=== PATIENT | female | born 1955 | race Two or more races ===

== ENCOUNTER 2019-11-07 11:41 | Emergency (ER) | payer MEDICAID, OTHER ==
[~2019-11-07] VITALS: Ht 152.4 cm; Wt 65.8 kg
[2019-11-07 11:51] VITALS: BP 150/81
[2019-11-07 13:13] LABS: Basophils # (auto) 0 10 ^3/uL (0-0.2); Basophils % (auto) 0.5 % (0.0-2.0); Eosinophils # (auto) 0.1 10 ^3/uL (0-0.8); Eosinophils % (auto) 1.1 % (0.0-7.0); Hematocrit 41.7 % (36.0-46.0); Lymphocytes # (auto) 1.4 10 ^3/uL (0.4-5.4); Lymphocytes % (auto) 23.8 % (10.0-50.0); Mean Corpuscular Hemoglobin 31.6 pg (28.0-32.0); Mean Corpuscular Hgb Conc. 33.7 g/dL (32.0-36.0); Mean Corpuscular Volume 93.8 fL (80.0-100.0); Monocytes # (auto) 0.5 10 ^3/uL (0-1.3); Monocytes % (auto) 8.6 % (0.0-12.0); Neutrophils # (auto) 3.8 10 ^3/uL (1.6-8.6); Platelet Count (auto) 287 10^3/uL (140-450); Red Blood Cells 4.44 10^6/uL (4.0-5.20); Red Cell Distribution Width 12.7 % (11.8-14.3); White Blood Cell 5.7 10^3/uL (4.4-10.8)
[2019-11-07 13:32] LABS: Anion Gap 4 (5-15); Blood Urea Nitrogen 17 mg/dL (7-18); Calcium 9.1 mg/dL (8.5-10.1); Carbon Dioxide 29 mmol/L (21-32); Chloride 106 mmol/L (98-107); Potassium 4.1 mmol/L (3.5-5.1); Sodium 139 mmol/L (136-145)
[2019-11-07 13:40] LABS: Alanine Aminotransferase 30 U/L (13-56); Albumin 3.9 g/dL (3.4-5.0); Alkaline Phosphatase 114 U/L (45-117); Aspartate Aminotransferase 17 U/L (15-37); Bilirubin, Total 0.3 mg/dL (0.2-1.0); GFR African American 124 mL/min; GFR Non-African American 102 mL/min; Glucose 87 mg/dL (74-106); Total Protein 8.1 g/dL (6.4-8.2)
== END 2019-11-07 14:19 | disposition home or self-care (01) ==
LOC: ER 11:41
DX: R07.89 Other chest pain (principal); E78.5 Hyperlipidemia, unspecified; I10 Essential (primary) hypertension; R51 Headache; Z98.51 Tubal ligation status
CPT/HCPCS: 36415; 71046; 80053; 84484; 85025; 93005

== ENCOUNTER 2022-02-25 12:22 | Emergency (ER) | payer MEDICAID ==
[~2022-02-25] VITALS: Ht 152.4 cm; Wt 70.5 kg
[2022-02-25 13:39] VITALS: BP 185/87
[2022-02-25 14:16] LABS: Basophils # (auto) 0 10 ^3/uL (0-0.2); Basophils % (auto) 0.4 % (0.0-2.0); Eosinophils # (auto) 0 10 ^3/uL (0-0.8); Eosinophils % (auto) 0.4 % (0.0-7.0); Hematocrit 42.8 % (36.0-46.0); Hemoglobin 14.4 g/dL (12.2-16.2); Lymphocytes # (auto) 0.9 10 ^3/uL (0.4-5.4); Lymphocytes % (auto) 13.9 % (10.0-50.0); Mean Corpuscular Hemoglobin 31.1 pg (28.0-32.0); Mean Corpuscular Hgb Conc. 33.6 g/dL (32.0-36.0); Mean Corpuscular Volume 92.6 fL (80.0-100.0); Monocytes # (auto) 0.2 10 ^3/uL (0-1.3); Monocytes % (auto) 3.6 % (0.0-12.0); Neutrophils # (auto) 5.2 10 ^3/uL (1.6-8.6); Neutrophils % (auto) 81.7 % (37.0-80.0); Nucleated Red Blood Cells % 0.1 %; Red Blood Cells 4.62 10^6/uL (4.0-5.20); Red Cell Distribution Width 12.8 % (11.8-14.3); White Blood Cell 6.3 10^3/uL (4.4-10.8)
[2022-02-25 14:38] LABS: Albumin 4.2 g/dL (3.4-5.0); Calcium 9.3 mg/dL (8.5-10.1); Potassium 4.4 mmol/L (3.5-5.1)
[2022-02-25 14:42] LABS: Bilirubin, Total 0.4 mg/dL (0.2-1.0); Total Protein 8.1 g/dL (6.4-8.2)
[2022-02-25] MEDS ORDERED: HYDR50CA PO (15:27)
[2022-02-25] MEDS ORDERED: ALPRAZolam 0.5 MG TAB PO ONE (15:30)
== END 2022-02-25 15:54 | disposition home or self-care (01) ==
LOC: ER 12:25
DX: F41.9 Anxiety disorder, unspecified (principal); F32.9 Major depressive disorder, single episode, unspecified; I10 Essential (primary) hypertension; E78.5 Hyperlipidemia, unspecified; Z79.899 Other long term (current) drug therapy
CPT/HCPCS: 36415; 80053; 84443; 84484; 85025; 93005

== ENCOUNTER 2023-05-13 13:04 | Emergency (ER) | payer OTHER, MEDICAID ==
[~2023-05-13 13:04] MED LIST: HYDR50CA PO
== END 2023-05-13 13:53 | disposition left against medical advice (07) ==
LOC: ER 13:04
DX: R42 Dizziness and giddiness (principal); R11.2 Nausea with vomiting, unspecified; Z53.21 Procedure and treatment not carried out due to patient leaving prior to being seen by health care provider

== ENCOUNTER 2024-07-29 01:35 | Observation (INO) | payer OTHER, MEDICAID ==
[2024-07-29] VITALS (9 sets, daily range): BP systolic 106–119; BP diastolic 46–51; PULSE 61–85; RESP 16–22; TEMP 98–98.5; O2SAT 96–100
[~2024-07-29] VITALS: Ht 152.4 cm; Wt 65.0 kg
[2024-07-29] MEDS: IOHEXOL 300 MG/ML 100ML BOTTLE IJ ONE (02:00)
[2024-07-29 02:26] LABS: Basophils # (auto) 0.1 10 ^3/uL (0-0.2); Basophils % (auto) 0.3 % (0.0-2.0); Eosinophils # (auto) 0 10 ^3/uL (0-0.8); Eosinophils % (auto) 0.2 % (0.0-7.0); Hemoglobin 14.8 g/dL (12.2-16.2); Lymphocytes # (auto) 0.7 10 ^3/uL (0.4-5.4); Mean Corpuscular Hemoglobin 32.3 pg (28.0-32.0); Mean Corpuscular Hgb Conc. 34.3 g/dL (32.0-36.0); Monocytes % (auto) 5.8 % (0.0-12.0); Neutrophils # (auto) 15.3 10 ^3/uL (1.6-8.6); Neutrophils % (auto) 89.7 % (37.0-80.0); Platelet Count (auto) 390 10^3/uL (140-450); Red Blood Cells 4.57 10^6/uL (4.0-5.20); Red Cell Distribution Width 12.7 % (11.8-14.3)
[2024-07-29] MEDS: FAMOTIDINE (10MG/ML) 2ML VL IV ONE (02:31)
[2024-07-29] MEDS: MORPHINE SULFATE 4 MG/ML SYR/VIAL IV ONE (02:32)
[2024-07-29] MEDS: ONDANSETRON HCL 4 MG/2 ML VIAL IV ONE (02:32)
--- NOTE | 2024-07-29 02:39 | ED.PDOC ---
History of Present Illness HPI Comments 68 y/o F presents with c/o nonradiating, epigastric abdominal pain, nausea, vomiting, and diarrhea for the past 2x days, today. Patient endorses on progressively worsening symptoms following initial unprovoked and gradual onset. She reports no recent injuries, spoiled food intake, or sick contact along with any additional relevant or pertinent information at time of initial assessment. Patient denies any hematemesis, hematochezia, diarrhea, urinary symptoms, fever, chills, or other associated symptoms or modifiers at this time. Chief Complaint: Abdominal Pain Time Seen by MD: 01:50 Primary Care Provider: MUKESH Reviewed Notes: Nurses Notes, Medications, Allergies Allergies: Coded Allergies: NO KNOWN ALLERGIES (Unverified , 11/07/19) Home Meds Active Scripts Hydroxyzine Pamoate (Vistaril) 50 Mg Cap, 50 MG PO QHSP PRN, #20 CAP Prov:MARGIE DELAROSA 02/25/22 Information Source: Patient Mode of Arrival: Ambulatory Severity: Moderate Timing: Days Duration: Since onset Prehospital treatment: None Past Medical History PAST MEDICAL HISTORY: Anxiety, Depression, High Lipids, HTN Surgical History: BTL PHARMACY DIRECTOR History: No Pertinent PHARMACY DIRECTOR History Family History Family History: No family hx of Cancer, No family hx of DM, No family hx of Heart loretta Social History Smoker: Non-Smoker Alcohol: Denies ETOH Use Drugs: Denies Drug Use Lives In: Home All Other Systems: Reviewed and Negative (Comprehensive systems review obtained and negative except for what is stated in the HPI.) Physical Exam General Appearance: No Apparent Distress, Normal HEENT: Normal ENT Inspection, Pharynx Normal, TMs Normal Neck: Full Range of Motion, Non-Tender, Normal, Normal Inspection Respiratory: Chest Non-Tender, Lungs Clear, No Accessory Muscle Use, No Respiratory Distress, Normal Breath Sounds Cardiovascular: No Edema, No JVD, No Murmur, No Gallop, Normal Peripheral Pulses, Regular Rate/Rhythm Breast Exam: Deferred Gastrointestinal: No Organomegaly, Non Tender, No Pulsatile Mass, Normal Bowel Sounds, Soft Genitalia: Deferred Pelvic: Deferred Rectal: Deferred Extremities: No calf tenderness, Normal capillary refill, Normal inspection, Normal range of motion, Non-tender, No pedal edema Musculoskeletal : Apperance: Normal Neurologic: Alert, ibm bpm developer II-XII nml as Tested, No Motor Deficits, Normal Affect, Normal Mood, No Sensory Deficits Cerebellar Function: Normal Reflexes: Normal Skin: Dry, Normal Color, Warm Lymphatic: No Adenopathy Was a procedure done? Was a procedure done?: No Differential Dx Considerations may include: gastritis, gastroenteritis, GERD, PUD, cholelithiasis, cholecystitis X-Ray, Labs, Meds, VS Vital Signs Date Time Temp Pulse Resp B/P (MAP) Pulse Ox O2 Delivery O2 Flow Rate FiO2 07/29/24 03:02 83 20 156/76 07/29/24 03:01 85 22 96 Room Air* 0 21 07/29/24 02:57 98.6 88 20 152/71 (98) 99 98.6 07/29/24 02:32 86 18 131/73 07/29/24 01:57 97.4 86 18 131/73 (92) 99 97.4 Lab Test 07/29/24 02:12 Range/Units White Blood Count 17.0 H 4.4-10.8 10^3/uL Red Blood Count 4.57 4.0-5.20 10^6/uL Hemoglobin 14.8 12.2-16.2 g/dL Hematocrit 43.0 36.0-46.0 % Mean Corpuscular Volume 94.0 80.0-100.0 fL Mean Corpuscular Hemoglobin 32.3 H 28.0-32.0 pg Mean Corpuscular Hemoglobin Concent 34.3 32.0-36.0 g/dL Red Cell Distribution Width 12.7 11.8-14.3 % Platelet Count 390 140-450 10^3/uL Mean Platelet Volume 8.6 6.9-10.8 fL Neutrophils (%) (Auto) 89.7 H 37.0-80.0 % Lymphocytes (%) (Auto) 4.0 L 10.0-50.0 % Monocytes (%) (Auto) 5.8 0.0-12.0 % Eosinophils (%) (Auto) 0.2 0.0-7.0 % Basophils (%) (Auto) 0.3 0.0-2.0 % Neutrophils # (Auto) 15.3 H 1.6-8.6 10 ^3/uL Lymphocytes # (Auto) 0.7 0.4-5.4 10 ^3/uL Monocytes # (Auto) 1.0 0-1.3 10 ^3/uL Eosinophils # (Auto) 0 0-0.8 10 ^3/uL Basophils # (Auto) 0.1 0-0.2 10 ^3/uL Nucleated Red Blood Cells 0.0 % Sodium Level 144 136-145 mmol/L Potassium Level 3.4 L 3.5-5.1 mmol/L Chloride Level 105 98-107 mmol/L Carbon Dioxide Level 30 20-31 mmol/L Anion Gap 9 5-15 Blood Urea Nitrogen 24 H 9-23 mg/dL Creatinine 0.92 0.550-1.02 mg/dL Glomerular Filtration Rate Calc 69 >90 mL/min BUN/Creatinine Ratio 26.1 H 10.0-20.0 Serum Glucose 191 H 74-106 mg/dL Calcium Level 10.9 H 8.7-10.4 mg/dL Total Bilirubin 0.4 0.2-1.0 mg/dL Aspartate Amino Transferase (AST) 15 13-40 U/L Alanine Aminotransferase (ALT) 22 7-40 U/L Alkaline Phosphatase 85 46-116 U/L Total Protein 8.2 5.7-8.2 g/dL Albumin 5.2 H 3.2-4.8 g/dL Lipase 89 H 12-53 U/L Current Medications Medications (Trade) Dose Ordered Sig/Flower Route Start Time Stop Time Status Last Admin Sodium Chloride 1,000 ml @ 1,000 mls/hr Q1H ONCE IV 07/29/24 02:00 07/29/24 02:59 DC 07/29/24 02:52 Ondansetron HCl (Zofran) 4 mg ONCE ONCE IV 07/29/24 02:00 07/29/24 02:01 DC 07/29/24 02:32 Morphine Sulfate 4 mg ONCE ONCE IV 07/29/24 02:00 07/29/24 02:01 DC 07/29/24 02:32 Famotidine (Pepcid Injection) 20 mg ONCE ONCE IV 07/29/24 02:00 07/29/24 02:01 DC 07/29/24 02:31 Time of 1ST Reevaluation: 02:20 Reevaluation 1ST: Unchanged Patient Education/Counseling: Diagnosis, Treatment Family Education/Counseling: No Family Present Additional Information Previous visit documents reviewed: May 13, 2023 encounter for dizziness, nausea, and vomiting The following tests were ordered, and results were reviewed by me: CT abdomen/pelvis w/IV contrast, UA, lipase, CMP, CBC Additional Information was gathered from interviewing the following independent historians: n/a I reviewed and agreed with the following test results read by other providers: CT abdomen/pelvis w/IV contrast I discussed treatment and results with medical personnel and: Patient Departure 1 Departure Time of Disposition: 03:48 (Patient presented with abdominal pain that was concerning for possible appendicits, gastritis, cholecystitis, colitis, gastroenteritis, sbo, or orther possible surgical emergency. Data: 1. I ordered and reviewed the result of at least 3 labs including a CBC, BMP, and Urinalysis. 2. I independently interpreted the following tests: CT Abdoment and Pelvis is concerning for possible cholecystitis .Risk:This patient has a high risk of mo rbidity due to further diagnostic testing or treatment and may suffer from an acute abdominal process disorder. Workup reveals concern for cholecystitis and patient should be admitted for further workup. and possible expert consultation. ) Impression: Primary Impression: Abdominal pain Qualified Codes: R10.13 - Epigastric pain Additional Impressions: Nausea and vomiting Qualified Codes: R11.12 - Projectile vomiting Cholelithiasis Qualified Codes: K80.20 - Calculus of gallbladder without cholecystitis without obstruction Disposition: ADMITTED INPATIENT Admit to: Med Surg Condition: Serious Critical Care Note Critical Care Time?: Yes Critical care comment: Intractable abdominal pain Authorized and Performed by: Mukul Bosch MD Total critical care time: Approximately 38 minutes Due to a high probability of clinically significant, life threatening deterioration, the patient required my highest level of preparedness to intervene emergently and I personally spent this critical care time directly and personally managing the patient. This critical care time included obtaining a history; examining the patient; pulse oximetry; ordering and review of studies; arranging urgent treatment with development of a management plan; evaluation of patient's response to treatment; frequent reassessment; and, discussions with other providers. This critical care time was performed to assess and manage the high probability of imminent, life-threatening deterioration that could result in multi-organ failure. It was exclusive of separately billable procedures and treating other patients and teaching time. Please see my other sections and the rest of the note for further information on patient assessment and treatment. Stability Stability form required: No Heart Score Heart Score: Heart Score Response (Comments) Value History N/A 0 EKG N/A 0 Age N/A 0 Risk Factors N/A 0 Troponin N/A 0 Total 0 I personally scribed for MUKUL BOSCH MD ([email or web address]) on 07/29/24 at 02:39. Electronically submitted by Percy Montelongo ([email or web address]). MUKUL BOSCH MD Jul 29, 2024 02:39
[2024-07-29 02:42] LABS: Alanine Aminotransferase 22 U/L (7-40); Alkaline Phosphatase 85 U/L (46-116); Anion Gap 9 (5-15); Aspartate Aminotransferase 15 U/L (13-40); BUN/Creatinine Ratio 26.1 (10.0-20.0); Bilirubin, Total 0.4 mg/dL (0.2-1.0); Carbon Dioxide 30 mmol/L (20-31); Chloride 105 mmol/L (98-107); Sodium 144 mmol/L (136-145)
[2024-07-29] MEDS: SODIUM CHLORIDE 0.9% 1,000 ML IV ONE (02:52)
[2024-07-29 03:08] LABS: Albumin 5.2 g/dL (3.2-4.8); Blood Urea Nitrogen 24 mg/dL (9-23); Calcium 10.9 mg/dL (8.7-10.4); Glucose 191 mg/dL (74-106); Lipase 89 U/L (12-53); Potassium 3.4 mmol/L (3.5-5.1); Total Protein 8.2 g/dL (5.7-8.2)
--- NOTE | 2024-07-29 03:09 | DVH ---
Exam: CT CT AB PEL WITH IV CON ONLY History: ABDOMINAL PAIN Comparison Study: None available at time of dictation. Contrast: 100 cc Omnipaque 300 TECHNIQUE: A digital tunnel kiln repairer image was obtained. During the uneventful, intravenous administration of c ontrast material, multislice data acquisition was obtained through the abdomen and pelvis. The data s et was subsequently reconstructed into axial images. Images were reviewed on a work station using a c ombination of axial and multiplanar using a variety of window levels and settings. All CT scans at this medical facility are performed using dose modulation techniques as appropriate t o a performed exam including the following: Automated exposure control was utilized; adjustment of th e MA and/or KV according to patient size; and use of iterative reconstruction technique. Radiation Dose Information: CT Dose: CTDI volume is 11.58 mGy. Dose-length product is 565.78 mGy*cm FINDINGS: Imaged portions of the lung bases demonstrate bibasilar dependent changes. There is a small hiatal he rnia. Mild diffuse hepatic steatosis. The gallbladder appears prominent with possible focal wall thic kening at the fundus. The common bile duct is prominent measuring 1.0 cm. Diverticula of the 2nd port ion of the duodenum are noted. The pancreas appears unremarkable. Adrenal glands appear unremarkable. Kidneys enhance symmetrically with multiple right renal cysts measuring up to 2.7 cm. No evidence of bowel obstruction or focal bowel wall thickening. The appendix appears normal. Severe sigmoid colonic diverticulosis. No free fluid, free air, or adenopathy. No suspicious osseous lesion . IMPRESSION: 1. Mild hepatic steatosis 2. Small hiatal hernia 3. Focal wall thickening of the gallbladder fundus May relate to adenomyomatosis. Prominent common bi le duct of unknown etiology, in the presence of duodenal diverticula which can account for findings. Consider right upper quadrant ultrasound and correlation with LFT/bili 4. Sigmoid colon diverticulosis without CT findings to suggest diverticulitis. HS:Y
[2024-07-29] MEDS ORDERED: ONDANSETRON HCL 4 MG/2 ML VIAL IV PRN (04:15)
[2024-07-29] MEDS: PIPERACILLIN-TAZO 4.5GM 100 ML IV ONE (04:24)
--- NOTE | 2024-07-29 04:55 | DVHHPRES ---
History of Present Illness Resident Creating Document: TAMEKA LEROY Reason for Visit: mid abdominal pain History of Present Illness A 68 year-old female with past medical history of anxiety, depression, hyperlipidemia and HTN presents to the ED with the chief complaints of mid abdominal pain, nausea, vomiting, and diarrhea for the past two days. According to the patient, she has been in her normal state of health until the past couple of days when she started experiencing mid-abdominal pain that became progressively worse and associate with nausea and nonbilious, nonblood emesis and nonbloody diarrhea. Pain was neither aggravated by food nor relieved by antacids. It was nonradiating and rated 8/10. She reports no recent travels outside the [place], intake of spoiled food or sick contact. She denies urinary symptoms, fever, chills, or other associated symptoms or modifiers at this time. Patient is very weak looking but hemodynamically stable. Pmhx: Anxiety, Depression, Hyperlipidemia, HTN, murmur repaired 50 years ago PShx: bilateral tubal ligation, Fmily history: Noncontributory Social history: lives at home and takes care of her Past Medical History See HPI Past Surgical History See HPI Review of Systems Constitutional: Yes: Weakness; No: Fever, Chills, Sweats, Malaise, Other Eyes: No: Pain, Vision change, Conjunctivae inflammation, Eyelid inflammation, Other, Redness ENT: No: Ear pain, Ear discharge, Nose pain, Nose discharge, Nose congestion, Mouth pain, Mouth swelling, Throat pain, Throat swelling, Other Respiratory: Cough, Hemoptysis, Pleuritic Pain, Sputum; No: Dry, Shortness of breath, SOB with excertion, Wheezing, Wheezing, Other Cardiovascular: No: Chest Pain, Palpitations, Orthopnea, Paroxysmal Noc. Dyspnea, Edema, Lt Headedness, Other Gastrointestinal: Nausea, Vomiting, Abdominal Pain, Diarrhea; No: Constipation, Melena, Hematochezia, Other Genitourinary: No Dysuria, No Frequency, No Incontinence, No Hematuria, No Retention, No Other Musculoskeletal: No: other, neck pain, shoulder pain, arm pain, back pain, hand pain, leg pain, foot pain Skin: No: Rash, Lesions, Jaundice, Bruising, Other Neurological: No: Weakness, Numbness, Incoordination, Change in speech, Confusion, Seizures, Other Allergies: Coded Allergies: NO KNOWN ALLERGIES (Unverified , 11/07/19) Medications Current Medications Medications Dose Ordered Sig/Flower Route Start Time Stop Time Status Last Admin Dose Admin Ondansetron HCl 4 mg Q4HP PRN IV 07/29/24 04:15 UNV Enoxaparin Sodium 40 mg DAILY SC 07/29/24 10:00 UNV Sodium Chloride 1,000 ml @ 60 mls/hr [id number] IV 07/29/24 04:15 UNV Exam Vital Signs Vital Signs Date Time Temp Pulse Resp B/P (MAP) Pulse Ox O2 Delivery O2 Flow Rate FiO2 07/29/24 03:02 83 20 156/76 07/29/24 03:01 96 Room Air* 0 21 07/29/24 02:57 98.6 98.6 Exam General: alert and oriented x4, mild distress and weak looking HEENT: Atraumatic,no conjunctivitis or nasal discharge Lung: CTAB Chest: S1 and s2 presents, No murmur Abdominal:tenderness in the mid abdomen : Nontender, non distended Skin: no abnormalities noted Extremities: no cyanosis, edema Neurology: No weakness noted. Motor and sensory intact. Labs/Xrays Labs Test 07/29/24 03:50 07/29/24 02:12 Range/Units Lactic Acid Level 1.5 0.4-2.0 mmol/L White Blood Count 17.0 H 4.4-10.8 10^3/uL Red Blood Count 4.57 4.0-5.20 10^6/uL Hemoglobin 14.8 12.2-16.2 g/dL Hematocrit 43.0 36.0-46.0 % Mean Corpuscular Volume 94.0 80.0-100.0 fL Mean Corpuscular Hemoglobin 32.3 H 28.0-32.0 pg Mean Corpuscular Hemoglobin Concent 34.3 32.0-36.0 g/dL Red Cell Distribution Width 12.7 11.8-14.3 % Platelet Count 390 140-450 10^3/uL Mean Platelet Volume 8.6 6.9-10.8 fL Neutrophils (%) (Auto) 89.7 H 37.0-80.0 % Lymphocytes (%) (Auto) 4.0 L 10.0-50.0 % Monocytes (%) (Auto) 5.8 0.0-12.0 % Eosinophils (%) (Auto) 0.2 0.0-7.0 % Basophils (%) (Auto) 0.3 0.0-2.0 % Neutrophils # (Auto) 15.3 H 1.6-8.6 10 ^3/uL Lymphocytes # (Auto) 0.7 0.4-5.4 10 ^3/uL Monocytes # (Auto) 1.0 0-1.3 10 ^3/uL Eosinophils # (Auto) 0 0-0.8 10 ^3/uL Basophils # (Auto) 0.1 0-0.2 10 ^3/uL Nucleated Red Blood Cells 0.0 % Sodium Level 144 136-145 mmol/L Potassium Level 3.4 L 3.5-5.1 mmol/L Chloride Level 105 98-107 mmol/L Carbon Dioxide Level 30 20-31 mmol/L Anion Gap 9 5-15 Blood Urea Nitrogen 24 H 9-23 mg/dL Creatinine 0.92 0.550-1.02 mg/dL Glomerular Filtration Rate Calc 69 >90 mL/min BUN/Creatinine Ratio 26.1 H 10.0-20.0 Serum Glucose 191 H 74-106 mg/dL Calcium Level 10.9 H 8.7-10.4 mg/dL Total Bilirubin 0.4 0.2-1.0 mg/dL Aspartate Amino Transferase (AST) 15 13-40 U/L Alanine Aminotransferase (ALT) 22 7-40 U/L Alkaline Phosphatase 85 46-116 U/L Total Protein 8.2 5.7-8.2 g/dL Albumin 5.2 H 3.2-4.8 g/dL Lipase 89 H 12-53 U/L Assessment/Plan Assessment/Plan Assessment Sepsis likely due to the Gastritis Gastritis, Viral vs Bacterial hypokalemia mild hypercalcemia likely due to dehydration Hypertension Hyperlipidemia Mildly elevated lipase History of Anxiety, depression and insomnia Severe Glaucoma History of vertigo Mild hepatic steatosis Small hiatal hernia Sigmoid colon diverticulosis without CT findings to suggest diverticulitis. Focal wall thickening of the gallbladder fundus May relate to adenomyomatosis History of murmur with " hole in heart" repaired at age Plan Keep NPO, give zofran and PPI IV NS at 125 ml/hr IV Antibiotic ( Ceftriaxone + metronidazole) because of sepsis Troponin and EKG Replace electrolytes monitor ekg Resume home medication: sertraline, trazodone and alprazolam Continue glaucoma meds Continue statin, fenofibrate, check A1C Continue adequate hydration US gallbladder pending Goal of care discussed for more than 30 minutes: full code Case and plan discussed with Dr. John Plan discussed with: Patient My Orders Orders - TAMEKA LEROY RESIDENT Procedure Category Date Status Time Admit ADMIT 07/29/24 Transmitted 04:10 Code Status CODE 07/29/24 Transmitted 04:10 Vital Signs [facility] 07/29/24 In Process 04:10 Review Orders With [facility] 07/29/24 In Process Adm.Md 04:10 Npo (Nothing By DIET 07/29/24 Transmitted Mouth) Diet Breakfast Notify Md Of Changes [facility] 07/29/24 In Process From Base 04:10 Advance Directive [facility] 07/29/24 In Process 04:10 Patient Condition ORDERS 07/29/24 Transmitted 04:10 Allergies [facility] 07/29/24 In Process 04:10 Ondansetron Hcl PHA 07/29/24 Logged (Zofran) 04:15 Hemoglobin A1c LAB 07/29/24 Logged 04:10 Enoxaparin Sodium PHA 07/29/24 Logged (Lovenox) 10:00 Stat Ekg For Chest [facility] 07/29/24 In Process Pain 04:10 Notify Md Of Changes [facility] 07/29/24 In Process From Base 04:10 Barrel Washer Machine For [facility] 07/29/24 In Process 24 Hours 04:10 Comprehensive LAB 07/29/24 Logged Metabolic Panel 04:10 Complete Blood Count LAB 07/29/24 Logged 04:10 Magnesium LAB 07/30/24 Verified 04:00 Lipid Panel LAB 07/29/24 Logged 04:10 Thyroid Stimulating LAB 07/29/24 Logged Hormone 04:10 Urinalysis LAB 07/29/24 Logged 04:10 Stool Bacterial [facility] 07/29/24 Logged Culture 04:10 Stool Wbc LAB 07/29/24 Logged 04:10 Stool Occult Blood LAB 07/29/24 Logged 04:10 Ph Stool LAB 07/29/24 Logged 04:10 Ova & Parasite Exam [facility] 07/29/24 Logged 04:10 Sodium Chloride 0.9% PHA 07/29/24 Logged 04:15 Date of Service: Jul 29, 2024 Billing Provider: ELIDIA JOHN MD Common Visit Codes: 23836-LUULVER INP/OBS CARE (HIGH) Secondary Visit Codes: [id number]-[id number] CARE PLAN 30 MINUTES TAMEKA LEROY Jul 29, 2024 04:55 ELIDIA JOHN MD Jul 29, 2024 11:01
[2024-07-29 05:07] LABS: Triglycerides 82 mg/dL (< 150)
[2024-07-29 05:08] LABS: LDL Cholesterol 60 mg/dL (< 100)
[2024-07-29 05:09] LABS: Cholesterol 169 mg/dL (< 200)
[2024-07-29 05:15] LABS: HDL Cholesterol 84 mg/dL (40-59)
[2024-07-29] MEDS: PANTOPRAZOLE 40 MG/10 ML VIAL INJ IV ONE (05:15)
[2024-07-29] MEDS: SODIUM CHLORIDE 0.9% 1,000 ML IV SCH ×2 (05:21→08:48)
[2024-07-29] MEDS ORDERED: HYDR-3682 IV (05:59)
[2024-07-29] MEDS ORDERED: LATA0.008 EACHEYE (05:59)
[2024-07-29] MEDS ORDERED: cefTRIAXone 1GM/50ML D5W 50 ML IV ONE (06:00)
[2024-07-29] MEDS: VANCOMYCIN 1GM/200ML PM 250 ML IV ONE (06:00)
[2024-07-29] MEDS: PANTOPRAZOLE 40 MG/10 ML VIAL INJ IV SCH (06:00)
[2024-07-29] MEDS ORDERED: TRAZ-227 PO (06:55)
[2024-07-29] MEDS ORDERED: SERT25TA28 PO (06:55)
[2024-07-29] MEDS ORDERED: FENO145T27 PO (06:55)
[2024-07-29] MEDS ORDERED: ALPR0.5T8 PO (06:55)
[2024-07-29 07:10] LABS: Urine Bacteria None Seen /hpf (None Seen)
[2024-07-29 07:19] LABS: Urine Blood Negative /uL (Negative); Urine Clarity Clear (Clear); Urine Color Light-Yellow (Yellow); Urine Protein, UAD TRACE (Negative); Urine Squamous Epithelial Cell FEW /hpf (<5); Urine Urobilinogen Normal (Negative)
[2024-07-29 07:20] LABS: Urine Specific Gravity > 1.035 (1.001-1.035)
[2024-07-29 07:22] LABS: Urine WBC < 1 /HPF (0-5)
[2024-07-29 07:34] LABS: Opiate Scree,Urine Pos (NEGATIVE)
[2024-07-29 07:39] LABS: Amphetamine Screen, Urine Neg (NEGATIVE); Barbiturate Scree,Urine Neg (NEGATIVE); Benzodiazephine Screen, Urine Neg (NEGATIVE); Cannabinoid Screen, Urine Neg (NEGATIVE); Cocaine Screen, Urine Neg (NEGATIVE); Phencyclidine Screen, Urine Neg (NEGATIVE)
[2024-07-29 07:51] LABS: Basophils # (auto) 0 10 ^3/uL (0-0.2); Basophils % (auto) 0.1 % (0.0-2.0); Eosinophils # (auto) 0 10 ^3/uL (0-0.8); Hematocrit 36.4 % (36.0-46.0); Hemoglobin 12.2 g/dL (12.2-16.2); Lymphocytes # (auto) 0.7 10 ^3/uL (0.4-5.4); Lymphocytes % (auto) 6.9 % (10.0-50.0); Mean Corpuscular Hemoglobin 31.7 pg (28.0-32.0); Mean Corpuscular Hgb Conc. 33.4 g/dL (32.0-36.0); Mean Corpuscular Volume 94.9 fL (80.0-100.0); Monocytes # (auto) 0.3 10 ^3/uL (0-1.3); Monocytes % (auto) 2.6 % (0.0-12.0); Neutrophils # (auto) 9.5 10 ^3/uL (1.6-8.6); Neutrophils % (auto) 90.4 % (37.0-80.0); Platelet Count (auto) 309 10^3/uL (140-450); Red Blood Cells 3.83 10^6/uL (4.0-5.20); Red Cell Distribution Width 12.5 % (11.8-14.3); White Blood Cell 10.5 10^3/uL (4.4-10.8)
--- NOTE | 2024-07-29 07:59 | DVH ---
EXAM: US GALLBLADDER INDICATION: ruq pain TECHNIQUE: Multiple real-time sonographic images were obtained of the right upper quadrant. COMPARISON: CT scan of the abdomen pelvis performed earlier same date. FINDINGS: The liver demonstrates homogenous echotexture without focal mass lesions. The liver measure s 15.4 cm in length. There is hepatopedal color doppler flow in the main portal vein. There is no int rahepatic biliary ductal dilatation. The gallbladder is without evidence of stone or sludge. The gallbladder wall measures 0.2 cm. The common bile duct measures 1.0 cm. No filling defect. There is a negative sonographic Brewster's sign. The right kidney measures 9.7 cm. Is a right renal cyst which measures 2.2 x 2.4 x 2.2 cm. The right kidney is normal in contour, size, and shape. The echogenicity is normal. There is no hydronephros is. The pancreas is not well visualized due to overlying bowel gas. Visualized portions of the aorta and inferior vena cava are unremarkable. No evidence of ascites. IMPRESSION: 1. Dilated common bile duct without filling defect. Etiology is unclear. MRCP may be obtained for fu rther evaluation. 2. Gallbladder within normal limits. No acute cholecystitis. 3. Hepatic steatosis.
[2024-07-29] MEDS: metroNIDAZOLE 500MG/100ML 100 ML IV ONE (08:15)
[2024-07-29 08:25] LABS: Alanine Aminotransferase 17 U/L (7-40); Alkaline Phosphatase 69 U/L (46-116); Anion Gap 13 (5-15); Blood Urea Nitrogen 20 mg/dL (9-23); Carbon Dioxide 25 mmol/L (20-31); Chloride 103 mmol/L (98-107); Potassium 3.5 mmol/L (3.5-5.1); Sodium 141 mmol/L (136-145)
[2024-07-29 08:26] LABS: Total Protein 6.4 g/dL (5.7-8.2)
[2024-07-29 08:27] LABS: Albumin 4.1 g/dL (3.2-4.8); Aspartate Aminotransferase 14 U/L (13-40); Bilirubin, Total 0.5 mg/dL (0.2-1.0); Glucose 184 mg/dL (74-106)
[2024-07-29] MEDS: cefTRIAXone 1GM/50ML D5W 50 ML IV SCH (10:33)
[2024-07-29] MEDS: ENOXAPARIN SOD 40 MG/0.4 ML SYRINGE SC SCH (10:33)
[2024-07-29] MEDS: metroNIDAZOLE 500MG/100ML 100 ML IV SCH (14:27)
[2024-07-29] MEDS ORDERED: PANTOPRAZOLE 40 MG/10 ML VIAL INJ IV SCH (22:00)
[2024-07-30 05:00] VITALS: BP 95/67; PULSE 60; RESP 18; TEMP 97.9; O2SAT 100
[2024-07-30 08:00] VITALS: PULSE 58
[2024-07-30 09:00] VITALS: BP 136/52; PULSE 63; RESP 18; TEMP 97.9; O2SAT 100
[2024-07-30] MEDS ORDERED: cefTRIAXone 1GM/50ML D5W 50 ML IV SCH (09:00)
--- NOTE | 2024-07-30 11:15 | DVH ---
CLINICAL INFORMATION: Common bile duct dilatation. TECHNIQUE: Multisequence multiplanar MRI images of the abdomen were obtained without IV contrast. Brandon graff T2-weighted MRCP images were obtained. 3D MRCP images were created. COMPARISON: Ultrasound dated 07/29/[address] dated 07/29/2024. FINDINGS: No gallstones visualized in the gallbladder. There appears to be a small amount of perichol ecystic fluid, although not correlated on recent ultrasound or CT. Common bile duct is mildly dilated , measuring up to 1 cm in diameter. No filling defect or stricture identified in the common bile duct on MRCP. Pancreatic duct is unremarkable. Jhao-tq-dhzithef atrophic changes in the pancreas. The spl een, and adrenal glands appear unremarkable. There is no hydronephrosis. Right renal cyst measures u p to 2.6 cm. Possible small parapelvic cyst in the left kidney. No abdominal aortic aneurysm visualiz ed. IMPRESSION: 1. Mildly dilated common bile duct. No filling defect or stricture identified in the common bile arturo t on MRCP. 2. Possible mild pericholecystic fluid, although not correlated on recent CT or MRI. No gallstones vi sualized. Correlate with clinical findings. 3. Additional findings as described above.
[2024-07-30 12:52] VITALS: TEMP 36.6
[2024-07-30 13:00] VITALS: BP 134/51; PULSE 71; RESP 18; TEMP 98.3; O2SAT 99
--- NOTE | 2024-07-30 22:05 | DVHDS2 ---
Discharge Summary Date of Admission Jul 29, 2024 at 05:33 Date of Discharge: Jul 30, 2024 Labs/Diagnostic Data: Laboratory Results Test 07/30/24 06:50 07/29/24 07:30 07/29/24 07:00 07/29/24 03:50 Magnesium Level 2.0 mg/dL (1.6-2.6) White Blood Count 10.5 10^3/uL (4.4-10.8) Red Blood Count 3.83 10^6/uL (4.0-5.20) Hemoglobin 12.2 g/dL (12.2-16.2) Hematocrit 36.4 % (36.0-46.0) Mean Corpuscular Volume 94.9 fL (80.0-100.0) Mean Corpuscular Hemoglobin 31.7 pg (28.0-32.0) Mean Corpuscular Hemoglobin Concent 33.4 g/dL (32.0-36.0) Red Cell Distribution Width 12.5 % (11.8-14.3) Platelet Count 309 10^3/uL (140-450) Mean Platelet Volume 8.5 fL (6.9-10.8) Neutrophils (%) (Auto) 90.4 % (37.0-80.0) Lymphocytes (%) (Auto) 6.9 % (10.0-50.0) Monocytes (%) (Auto) 2.6 % (0.0-12.0) Eosinophils (%) (Auto) 0.0 % (0.0-7.0) Basophils (%) (Auto) 0.1 % (0.0-2.0) Neutrophils # (Auto) 9.5 10 ^3/uL (1.6-8.6) Lymphocytes # (Auto) 0.7 10 ^3/uL (0.4-5.4) Monocytes # (Auto) 0.3 10 ^3/uL (0-1.3) Eosinophils # (Auto) 0 10 ^3/uL (0-0.8) Basophils # (Auto) 0 10 ^3/uL (0-0.2) Nucleated Red Blood Cells 0.0 % Sodium Level 141 mmol/L (136-145) Potassium Level 3.5 mmol/L (3.5-5.1) Chloride Level 103 mmol/L (98-107) Carbon Dioxide Level 25 mmol/L (20-31) Anion Gap 13 (5-15) Blood Urea Nitrogen 20 mg/dL (9-23) Creatinine 0.77 mg/dL (0.550-1.02) Glomerular Filtration Rate Calc 85 mL/min (>90) BUN/Creatinine Ratio 26.0 (10.0-20.0) Serum Glucose 184 mg/dL (74-106) Calcium Level 9.0 mg/dL (8.7-10.4) Total Bilirubin 0.5 mg/dL (0.2-1.0) Aspartate Amino Transferase (AST) 14 U/L (13-40) Alanine Aminotransferase (ALT) 17 U/L (7-40) Alkaline Phosphatase 69 U/L (46-116) Troponin I High Sensitivity 12 ng/L (</=34) Total Protein 6.4 g/dL (5.7-8.2) Albumin 4.1 g/dL (3.2-4.8) Urine Color Light-yellow (Yellow) Urine Clarity Clear (Clear) Urine pH 7.0 (5.0-9.0) Urine Specific [place] > 1.035 (1.001-1.035) Urine Protein Trace (Negative) Urine Ketones Negative (Negative) Urine Blood Negative /uL (Negative) Urine Nitrite Negative (Negative) Urine Bilirubin Negative (Negative) Urine Urobilinogen Normal mg/dL (Negative) Urine Leukocyte Esterase Negative /uL (Negative) Urine RBC 1 /hpf (0 - 4) Urine Microscopic WBC < 1 /HPF (0-5) Urine Squamous Epithelial Cells Few /hpf (<5) Urine Bacteria None seen /hpf (None Seen) Urine Glucose Normal mg/dL (Normal) Urine Opiates Screen Pos (NEGATIVE) Urine Fentanyl Screen Neg (NEGATIVE) Urine Barbiturates Screen Neg (NEGATIVE) Urine Phencyclidine Screen Neg (NEGATIVE) Urine Amphetamines Screen Neg (NEGATIVE) Urine Benzodiazepines Screen Neg (NEGATIVE) Urine Cocaine Screen Neg (NEGATIVE) Urine Cannabinoids Screen Neg (NEGATIVE) Lactic Acid Level 1.5 mmol/L (0.4-2.0) Test 07/29/24 02:12 Hemoglobin A1c 5.6 % A1C (<5.7) Triglycerides Level 82 mg/dL (< 150) Cholesterol Level 169 mg/dL (< 200) LDL Cholesterol 60 mg/dL (< 100) HDL Cholesterol 84 mg/dL (40-59) Lipase 89 U/L (12-53) Thyroid Stimulating Hormone (TSH) 1.76 uIU/mL (0.55-4.78) Other Laboratory Tests 07/29/24 07:30 Brief Hx & Hospital Course: Patient is a 68-year-old female with past medical history of anxiety, hypertension who presented with complaints of abdominal pain, nausea and vomiting and diarrhea for 2 days. Patient was made NPO. She had a CT abdomen pelvis which showed focal wall thickening of the gallbladder fundus with prominent common bile duct dilation. There is also sigmoid diverticulosis. No diverticulitis was noted. CBC initially showed leukocytosis of 17. This improved to 10.5 on discharge. CMP was normal with normal LFTs. Patient underwent MRCP which showed a mildly dilated common bile duct without a filling defect or identified stones. There was also a possible mild pericholecystic fluid which was not correlated on recent CT or MRI. No gallstones were noted. Brewster sign on physical exam was negative. Patient denied any abdominal tenderness. Patient's diet was subsequently advanced to full mechanical without any issues of nausea or vomiting. Patient was discharged in stable condition. No antibiotics were prescribed on discharged as they were not medically necessary given no signs of infection. Patient follow-up with her PCP. [facility] case management arrange follow-up appointments. Condition at Discharge: Good Final Diagnosis/Problems List Nausea and vomiting Secondary Diagnosis: Hypertension Anxiety Discharge Disposition: Home Discharge Instruct/Medications Diet: Regular Activity: No Restrictions, As Tolerated Follow Up/Referral: Follow up with PCP. MRCP negative for gallstones or obstruction. Medications: No new medications. Discharge Statement: "Patient was advised to return to the ER or call 911 if any headaches, dizziness, shortness of breath, chest pain, abdominal pain, bleeding, fevers, or worsening of medical condition. Patient was counseled about treatment plan, medications, possible side effects, patientverbalized understanding. All questions were answered to the best of my ability. This discharge took greater then 30 minutes in planning, reviewing documentation, counseling the patient, and discussing with other team members." ASSESSMENT ASSESSMENT Assessment Nausea and vomiting CRISTY RODRIGUEZ DO Jul 30, 2024 22:05
== END 2024-07-30 14:27 | disposition home or self-care (01) ==
LOC: ER 01:35 → OVERFLOW 05:33 → INTOOBSV 05:33 → TELE-EAST 08:50
PROVIDERS: ADMIT Student in an Organized Health Care Education/Training Program; ATTEND Student in an Organized Health Care Education/Training Program
DX: R11.2 Nausea with vomiting, unspecified (principal); I10 Essential (primary) hypertension; F41.9 Anxiety disorder, unspecified; E87.6 Hypokalemia; E83.52 Hypercalcemia; E86.0 Dehydration; E78.5 Hyperlipidemia, unspecified; F32.9 Major depressive disorder, single episode, unspecified; K57.30 Diverticulosis of large intestine without perforation or abscess without bleeding; H40.9 Unspecified glaucoma; K76.0 Fatty (change of) liver, not elsewhere classified; K44.9 Diaphragmatic hernia without obstruction or gangrene; Z79.899 Other long term (current) drug therapy; Z98.890 Other specified postprocedural states
CPT/HCPCS: 36415; 74177; 74181; 76705; 80053; 80061; 80307; 81001; 83036; 83605; 83690; 83735; 84443; 84484; 85025; 87040; 87076; 87077; 96361; 96365; 96366; 96367; 96368; 96372; 96375; 96376; 99291; G0378; J0696; J1650; J2270; J2405; J2470; J2543; J3370; J3490; J7030; Q9967